=== PATIENT | female | born 2000 ===

== ENCOUNTER 2019-08-18 12:42 | Emergency (ER) | payer BC, OTHER ==
[~2019-08-18] VITALS: Ht 172.7 cm; Wt 74.4 kg
[2019-08-18] MEDS ORDERED: PRED5 PO (13:39)
[2019-08-18] MEDS ORDERED: TRIDERM28.4 GM TOP (13:45)
== END 2019-08-18 14:01 | disposition home or self-care (01) ==
LOC: ER 12:42
DX: L23.7 Allergic contact dermatitis due to plants, except food (principal)
CPT/HCPCS: 96372; 99283-25; J3301